=== PATIENT | male | born 1980 | race Caucasian/White ===

== ENCOUNTER 2023-09-04 16:54 | Emergency (ER) | payer OTHER, SELFPAY ==
[2023-09-04 16:57] VITALS: BP 125/87; PULSE 93; RESP 18; TEMP 36.9; O2SAT 97; BMI 27.0
--- NOTE | 2023-09-04 17:14 | CRLHL7_ITS ---
For Patients: As a result of the Century Cures Act, medical imaging exams and procedure reports are released immediately into your electronic medical record. You may view this report before your referring provider. If you have questions, please contact your health care provider. INDICATION: Low back pain. Trauma. TECHNIQUE: Non-contrast axial CT of the lumbar spine with coronal and sagittal reconstructions. No comparisons. FINDINGS: The overall stature and alignment of the lumbar spine is within normal limits. No evidence of bony fragments narrowing the central canal or visualized neural foramina. No convincing radiographic evidence of suspicious high-grade central canal or foraminal narrowing. IMPRESSION: 1. No radiographic evidence of acute osseous injury Please note that all CT scans at this facility use dose modulation, iterative reconstruction, and/or weight-based dosing when appropriate to reduce radiation dose to as low as reasonably achievable. Dictated by Brian Steven MD @ 09/04/2023 5:51:04 PM (Electronically Signed)
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
--- OUTSIDE RECORDS SUMMARY | 2023-09-04 17:56 | XMS_ITS | Clinical Summary ---
Author Organization [facility] Address [address] [place] [id number] Care Team Providers Care Warehouse Selector Name Role Phone Patient, None Per Primary Care Provider Unavaila ble Source Comments This disclosure is being made pursuant to the [employer] program and maynot contain all information available regarding this patient.[facility] Allergies No known active allergies Medications Medication Sig Dispensed Refills Start Date End Date Status HYDROcodone-acetaminop hen (NORCO) 7.5-325 MG per tablet Take 1 tablet by mouth every 4 (four) to 6 (six) hours as needed for Pain. 0 04/12/2023 Active Active Problems Problem Noted Date Diagnosed Date Renal cell carcinoma of left kidney 04/18/2023 Baltazar's esophagus without dysplasia 03/16/2016 Gastroesophageal reflux disease without esophagi tis 03/11/2016 Anxiety and depression 10/08/2014 GREG on CPAP 04/24/2014 Syncope 08/01/2013 Tobacco abuse 08/01/2013 Resolved Problems Problem Noted Date Diagnosed Date Resolved Date Abdominal pain 03/11/2016 03/16/2016 Immunizations Name Administration Dates Next Due LIVE Xazyrvt-Hlccc-Xwkexyz (M-M-R II) MMR 1995 Tdap 05/08/2014,07/21/2009 Tetanus and Diphtheria (Generic) Td 07/22/2009 Family History Medical History Relation Name Comments No Known Problems Father No Known Problems Mother Cancer Paternal Uncle ADHD Son Relation Name Status Comments Brother Alive Father Alive Maternal Grandfather Maternal Grandmother Mother Alive Paternal Grandfather Paternal Grandmother Paternal Uncle Sister Alive Son Alive Social History Tobacco Use Types Packs/Day Years Used Date Smoking Tobacco: Every Day Cigarettes 1 20 Smokeless Tobacco: Never Tobacco Cessation:Ready to Q uit: Not Asked; Counseling Given: Not Answered Alcohol Use Standard Drinks/Week Comments Yes 0 (1 standard drink = 0.6 oz pur e alcohol) Alcoholic Drinks/day: Daily PHQ-2 Answer Date Recorded PHQ-2 Total Score 0 03/11/2023 Exercise Vital Sign Answer Date Recorde d On average, how many days pe r week do you engage in moderate to strenuous exercise (like a brisk walk)? 0 days 04/09/2021 On average, how many minutes do you engage in exercise at this level? 0 min 04/09/2021 Sex and Gender Information Value Date Recorded Sex Assigned at Not on file Gender Identity Not on file Sexual Orientation Not on file Job Start Date Occupation Industry Not on file Not on file Not on file Last Filed Vital Signs Vital Sign Reading Time Taken Comments Blood Pressure 138/88 04/18/2023 2:41 PM [employer] Pulse 89 04/18/2023 2:39 PM [employer] Temperature 37.2 ??C (98.9 ??F) 04/18/2023 2:39 PM CS T Respiratory Rate 16 04/18/2023 2:39 PM [employer] Oxygen Saturation 94% 04/18/2023 2:39 PM [employer] Inhaled Oxygen Concentration - - Weight 90.9 kg (200 lb 4.8 oz) 04/18/2023 2:39 P M [employer] Height 188 cm (6' 2) 04/18/2023 2:39 PM [employer] Body Mass Index 25.72 04/18/2023 2:39 PM [employer] Plan of Treatment Health Maintenance Due Date Last Done Comments Hepatitis B Vaccine (1 of 3 - 3-dose series) 1978 Lab-Hepatitis C Screening 1978 COVID-19 Vaccine (#1) 06/11/1979 Pneumococcal Vaccines 0-64 y o (1 of 2 - PCV) 1984 Annual Wellness Visit 06/02/2016 06/02/2015 Lab-Cholesterol Screening 04/09/2018 04/09/2013 Influenza Vaccine (#1) 2023 Postp oned from 12/10/2022 (Patient Declined) Lab-Diabetes Screening 04/18/2024 , 12/30/2015, 08/01/2013 Tetanus/Pertussis Vaccine Teen/Adult (4 - Td or Tdap) 05/08/2024 05/08/2014, 07/22/2009, 07/21/2009 Zoster (Shingles) Vaccine 50 + (1 of 2) 2028 HIB Vaccine Aged Out No longer eligi ble based on patient's age to complete this topic HPV Vaccine ([id number],M: 9-22) Aged Out No longer eligible b ased on patient's age to complete this topic Hepatitis A Vaccine Aged Out No longe r eligible based on patient's age to complete this topic IPV Vaccine Aged Out No longer eligi ble based on patient's age to complete this topic Meningococcal Conjugate Vaccine Aged Out No longer eligible b ased on patient's age to complete this topic RSV < 20 Months Aged Out No longer el igible based on patient's age to complete this topic Care Teams Warehouse Selector Relationship Specialty Start Date End Date Patient, None Per PCP - General 07/01/20
== END 2023-09-04 18:11 | disposition home or self-care (01) ==
PROVIDERS: Emergency Provider Family Medicine
DX: M54.50 Low back pain, unspecified (principal); R22.2 Localized swelling, mass and lump, trunk
CPT/HCPCS: 72131; 99284